=== PATIENT | male | born 1940 | race Caucasian/White ===

== ENCOUNTER → 2017-01-14 | Outpatient (CLI) | payer MEDICARE | END | disposition home or self-care (01) | LOC: CVU 07:50 | PROVIDERS: ATTEND Internal Medicine Cardiovascular Disease | DX: I08.3 Combined rheumatic disorders of mitral, aortic and tricuspid valves (principal); I71.4 Abdominal aortic aneurysm, without rupture; M71.21 Synovial cyst of popliteal space [Baker], right knee; M71.22 Synovial cyst of popliteal space [Baker], left knee | CPT/HCPCS: 93306; 93970 ==

== ENCOUNTER → 2017-04-15 | Outpatient (CLI) | payer MEDICARE ==
[~2017-04-15] MED LIST: OMNIPAQUE 350 MG/ML, 150 ML BOTTLE ONE
== END | disposition home or self-care (01) ==
LOC: CFH 13:28
PROVIDERS: ATTEND Nurse Practitioner Primary Care
DX: N40.0 Benign prostatic hyperplasia without lower urinary tract symptoms (principal); N28.1 Cyst of kidney, acquired; I70.0 Atherosclerosis of aorta; I71.9 Aortic aneurysm of unspecified site, without rupture
CPT/HCPCS: 74178; 82565; Q9967

== ENCOUNTER → 2017-06-29 | Outpatient (CLI) | payer MEDICARE | END | disposition home or self-care (01) | LOC: RAD 14:42 | PROVIDERS: ATTEND Internal Medicine | DX: I82.402 Acute embolism and thrombosis of unspecified deep veins of left lower extremity (principal) ==

== ENCOUNTER → 2017-12-02 | Outpatient (CLI) | payer MEDICARE | LOC: CVU 07:35 | PROVIDERS: ATTEND Nurse Practitioner Family | DX: M71.22 Synovial cyst of popliteal space [Baker], left knee (principal); I87.2 Venous insufficiency (chronic) (peripheral); R60.9 Edema, unspecified | CPT/HCPCS: 93970 ==

== ENCOUNTER → 2018-05-07 | Outpatient (CLI) | payer MEDICARE | END | disposition home or self-care (01) | LOC: CVU 13:58 | PROVIDERS: ATTEND Internal Medicine | DX: I82.412 Acute embolism and thrombosis of left femoral vein (principal); I87.2 Venous insufficiency (chronic) (peripheral) | CPT/HCPCS: 93970 ==